=== PATIENT | male | born 1975 | race Caucasian/White ===

== ENCOUNTER 2016-12-10 13:18 | Emergency (ER) | payer BC ==
[~2016-12-10] VITALS: Ht 188 cm; Wt 95.3 kg
--- NOTE | 2016-12-10 13:21 | NUR ---
CARMEN FROM [facility]: R/O TB. PLACED ON MONITOR. AWAITING MD ORDER
--- NOTE | 2016-12-10 13:45 | NUR ---
REJ #20 IV ACCESS, BLOOD SAMPLE COLLECTED SENT TO LAB
[2016-12-10] MEDS ORDERED: LORAZEPAM 1 MG TABLET PO ONE (14:00)
[2016-12-10] MEDS ORDERED: CLON0.1T PO (14:09)
[2016-12-10] MEDS ORDERED: ONDA4TAB8 SL (14:09)
[2016-12-10] MEDS ORDERED: METH-406 PO (14:09)
[2016-12-10] MEDS ORDERED: LOPE2TAB25 PO (14:09)
[2016-12-10] MEDS ORDERED: LORA2DIS4 IM (14:09)
[2016-12-10] MEDS ORDERED: HYDR50CA PO (14:09)
[2016-12-10] MEDS ORDERED: DICY20TA11 PO (14:09)
[2016-12-10] MEDS ORDERED: POLY17PO4 PO (14:09)
[2016-12-10] MEDS ORDERED: MAG30ORA PO (14:09)
[2016-12-10] MEDS ORDERED: GABA-534 PO (14:09)
[2016-12-10] MEDS ORDERED: IBUP-1955 PO (14:09)
[2016-12-10] MEDS ORDERED: KETO30VI4 IM (14:09)
[2016-12-10] MEDS ORDERED: NICO1PAT10 TD (14:09)
[2016-12-10] MEDS ORDERED: ACET-868 PO (14:09)
[2016-12-10] MEDS ORDERED: DIPH25CA6 PO (14:09)
[2016-12-10 14:12] LABS: BASOPHILS % (AUTO) 0.6 % (0.0-2.0); EOSINOPHILS # (AUTO) 0.1 /CMM (0.0-0.7); EOSINOPHILS % (AUTO) 2.6 % (0.0-6.0); HEMATOCRIT 33 % (39-51); HEMOGLOBIN 10.5 g/dL (13.5-17.5); LYMPHOCYTES # (AUTO) 1.1 /CMM (0.8-4.8); LYMPHOCYTES % (AUTO) 22.5 % (20.0-44.0); MEAN CORPUSCULAR HEMOGLOBIN 23 PG (26.0-33.0); MEAN CORPUSCULAR HGB CONC 32 g/dl (31.0-36.0); MEAN CORPUSCULAR VOLUME 72 fL (80-96); MONOCYTES # (AUTO) 0.3 /CMM (0.1-1.30); NEUTROPHILS # (AUTO) 3.2 /CMM (1.8-8.9); NEUTROPHILS % (AUTO) 67.3 % (43.0-81.0); PLATELET COUNT (AUTO) 335 /CMM (150-450); RDW COEFFICIENT OF VARIATION 18.1 (11.5-15.0); RED BLOOD CELL COUNT(AUTO) 4.52 MIL/uL (4.5-6.0); WHITE BLOOD COUNT (AUTO) 4.7 K/uL (4.3-11.0)
[2016-12-10] MEDS ORDERED: LORAZEPAM 1 MG TABLET ONE (14:13)
[2016-12-10] MEDS ORDERED: LORA1TAB PO (14:14)
[2016-12-10] MEDS ORDERED: CEPH500C2 PO (14:15)
[2016-12-10 14:27] LABS: INR 0.94 (0.87-1.13); PROTHROMBIN TIME 9.8 SECS (9.5-12.7)
[2016-12-10] MEDS ORDERED: CLONIDINE HCL 0.1 MG TABLET PO PRN (14:30)
[2016-12-10] MEDS ORDERED: LORAZEPAM 1 MG TABLET PO SCH (14:30)
[2016-12-10] MEDS ORDERED: ACETAMINOPHEN 325 MG TABLET PO PRN (14:30)
[2016-12-10] MEDS ORDERED: hydrOXYzine PAMOATE 50 MG CAPSULE PO PRN (14:30)
[2016-12-10] MEDS ORDERED: MAGNESIUM HYDROXIDE 30 ML UDC PO PRN (14:30)
[2016-12-10] MEDS ORDERED: ONDANSETRON HCL/PF 4 MG/2 ML VIAL IVP PRN (14:30)
[2016-12-10] MEDS ORDERED: NICOTINE PATCH (14MG) 14 MG PATCH.TD24 TD PRN (14:30)
[2016-12-10] MEDS ORDERED: Z GUARD REMEDY 2 OZ OINT TP PRN (14:30)
[2016-12-10] MEDS ORDERED: METHOCARBAMOL (750MG) 750 MG TABLET PO PRN (14:30)
[2016-12-10] MEDS ORDERED: IBUPROFEN 600 MG TABLET PO PRN (14:30)
[2016-12-10] MEDS ORDERED: Medication Not On Formulary EA (Loperamide Hcl (Loperamide) 2 MG) PO PRN (14:30)
[2016-12-10] MEDS ORDERED: POLYETHYLENE GLYCOL 3350 17 GM POWD.PACK PO PRN (14:30)
[2016-12-10] MEDS ORDERED: KETOROLAC TROMETHAMINE INJ 30 MG/ML VIAL IM PRN (14:30)
[2016-12-10] MEDS ORDERED: DICYCLOMINE HCL 10 MG CAPSULE PO PRN (14:30)
[2016-12-10] MEDS ORDERED: MAG HYDROX/AL HYDROX/SIMETH 30 ML UDC PO PRN (14:30)
[2016-12-10 14:32] LABS: CALCIUM, SERUM 9.3 mg/dL (8.5-10.1); CARBON DIOXIDE 28 mmol/L (21-32); CHLORIDE 107 mmol/L (98-107); CREATININE 0.8 mg/dL (0.6-1.3); GLUCOSE 107 mg/dL (74-106); SODIUM SERUM 141 mmol/L (136-145); UREA NITROGEN, BLOOD 8 mg/dL (7-18)
[2016-12-10 14:37] LABS: ACETAMINOPHEN < 2 ug/ml (10-30); SALICYLATE 1.6 mg/dL (2.8-20.0)
[2016-12-10 14:38] LABS: ALANINE AMINOTRANSFERASE 20 U/L (12-78); ALBUMIN 3.1 g/dL (3.4-5.0); ALKALINE PHOSPHATASE 70 U/L (46-116); ASPARTATE AMINOTRANSFERASE 19 U/L (15-37); BILIRUBIN,DIRECT 0.1 mg/dL (0.0-0.2); BILIRUBIN,TOTAL 0.3 mg/dL (0.2-1.0); LIPASE 201 U/L (73-393); TOTAL PROTEIN, SERUM 7.7 g/dL (6.4-8.2)
[2016-12-10 14:40] LABS: TROPONIN I < 0.017 ng/mL (0.00-0.056)
[2016-12-10 14:51] LABS: EOSINOPHILS % (MANUAL) 2 % (0-4); LYMPHOCYTES % (MANUAL) 17 % (16-48); MONOCYTES % (MANUAL) 4 % (0-11.0); NEUTROPHILS % (MANUAL) 77 (42-76)
--- NOTE | 2016-12-10 15:05 | NUR ---
SPOKE TO DARIANA AT [facility] [phone] PT NEGATIVE TB ON CXR. DR FOY AT [facility] [phone] SPOKE TO DR SHARP PT TRANSFERRING BACK TO [facility]
--- NOTE | 2016-12-10 15:28 | NUR ---
CALLED [facility] FOR TRANSPORT BACK TO [facility], ETA [id number], TRIP #[id number]
[2016-12-10] MEDS ORDERED: GABAPENTIN 300 MG CAPSULE PO SCH (17:00)
[2016-12-10 17:12] VITALS: BP 140/87
--- NOTE | 2016-12-10 17:13 | NUR ---
Patient discharged to home in stable condition. Written and verbal after care instructions given. Patient verbalizes understanding of instruction.
--- NOTE | 2016-12-10 17:13 | NUR ---
IV removed. Catheter intact and site benign. Pressure and 4x4 applied to site. No bleeding noted.
[2016-12-10] MEDS ORDERED: CEPHALEXIN MONOHYDRATE 500 MG CAPSULE PO SCH (18:00)
[2016-12-10] MEDS ORDERED: diphenhydrAMINE HCL 25 MG CAPSULE PO PRN (22:00)
[2016-12-10] MEDS ORDERED: ZOLPIDEM TARTRATE 5 MG TABLET PO PRN (22:00)
== END 2016-12-10 17:13 | disposition home or self-care (01) ==
LOC: ER 13:20 → UNDOADMIN 14:39 → MEDSG2 14:39 → ER 17:13
DX: F11.23 Opioid dependence with withdrawal (principal); F19.10 Other psychoactive substance abuse, uncomplicated; F10.10 Alcohol abuse, uncomplicated; R79.1 Abnormal coagulation profile; Z88.8 Allergy status to other drugs, medicaments and biological substances
CPT/HCPCS: 36415; 71010-TC; 80048-TC; 80076-TC; 83690-TC; 84484-TC; 85025-TC; 85730-TC; A4606; G0480; Z7610